=== PATIENT | male | born 1975 | race African-American/Black ===

== ENCOUNTER 2023-12-15 09:01 | Emergency (ER) | payer MEDICAID, OTHER ==
[~2023-12-15] VITALS: Ht 188 cm; Wt 113.4 kg
[2023-12-15 09:16] VITALS: O2SAT 98
[2023-12-15] MEDS ORDERED: SULFAMETH/TRIMETH 800/160 MG TABLET ONE (09:42)
[2023-12-15] MEDS: SULFAMETH/TRIMETH 800/160 MG TABLET PO ONE (09:43)
[2023-12-15] MEDS ORDERED: SULF1TAB48 PO (09:52)
[2023-12-15] MEDS ORDERED: ACETAMINOPHEN 500 MG TABLET ONE (10:05)
[2023-12-15] MEDS: ACETAMINOPHEN 500 MG TABLET PO ONE (10:08)
== END 2023-12-15 10:11 | disposition home or self-care (01) ==
LOC: ER 09:02
DX: L02.31 Cutaneous abscess of buttock (principal); Z98.890 Other specified postprocedural states; Z79.899 Other long term (current) drug therapy; Z60.2 Problems related to living alone
CPT/HCPCS: A4606; A4663; A9150